=== PATIENT | male | born 1950 | race Caucasian/White ===

== ENCOUNTER 2017-08-02 08:34 | Emergency (ER) | payer OTHER ==
[~2017-08-02] VITALS: Ht 188 cm; Wt 81.7 kg
[~2017-08-02 08:34] MED LIST: Prinivil10 MG PO
[2017-08-02 09:08] LABS: BASOPHILS ABSOLUTE AUTO 0.03 K/mm3 (0.00-0.23); BASOPHILS PERCENT AUTO 1 % (0-2); EOSINOPHILS ABSOLUTE AUTO 0.17 K/mm3 (0.00-0.68); EOSINOPHILS PERCENT AUTO 3 % (0-6); Hematocrit 43.5 % (37.0-53.0); Hemoglobin 15.4 g/dL (13.5-17.5); IMMATURE GRAN ABSOLUTE AUTO 0.02 K/mm3 (0.00-0.10); IMMATURE GRAN PERCENT AUTO 0 % (0-1); LYMPHOCYTES ABSOLUTE AUTO 1.45 K/mm3 (0.84-5.20); LYMPHOCYTES PERCENT AUTO 22 % (21-46); MONOCYTES ABSOLUTE AUTO 0.86 K/mm3 (0.16-1.47); MONOCYTES PERCENT AUTO 13 % (4-13); Mean Corpuscular HGB 33.3 pg (26.0-34.0); Mean Corpuscular HGB Conc 35.4 g/dL (31.5-36.5); Mean Corpuscular Volume 94 fL (80-100); NEUTROPHILS ABSOLUTE AUTO 4.05 K/mm3 (1.96-9.15); NEUTROPHILS PERCENT AUTO 62 % (41-73); Platelet Count 309 K/mm3 (150-400); RDW Coefficient Variation 11.5 % (11.7-14.2); RDW Standard Deviation 39.4 fL (35.1-46.3); Red Blood Cell Count 4.63 M/mm3 (4.30-5.90); White Blood Cell Count 6.58 K/mm3 (4.00-11.30)
[2017-08-02 09:27] LABS: Alanine Aminotransfer (ALT/SGP 24 U/L (12-78); Albumin, Blood 3.9 g/dL (3.4-5.0); Albumin/Globulin Ratio 1.1 (0.8-1.8); Alk Phos 52 U/L (50-136); Anion Gap 8 mmol/L (6-16); Aspartate Aminotrans (AST/SGOT 23 U/L (12-37); Bilirubin, Total 1.2 mg/dL (0.1-1.0); Blood Urea Nitrogen 18 mg/dL (8-24); Bun/Creatinine Ratio 19.1 (12.0-20.0); CO2, Blood 25 mmol/L (21-32); Calcium, Blood 9.2 mg/dL (8.5-10.1); Chloride, Blood 104 mmol/L (98-108); Creatinine, Blood 0.94 mg/dL (0.60-1.20); Globulin, Blood 3.4 g/dL (2.2-4.0); Glomerular Filtration Rate >60 (60-); Glucose, Blood 110 mg/dL (70-99); International Normalized Ratio 0.98; Magnesium, Blood 2.3 mg/dL (1.6-2.4); Potassium, Blood 4.5 mmol/L (3.5-5.5); Prothrombin Time Results 10.2 Sec (9.7-11.5); Sodium, Blood 137 mmol/L (136-145); Total Protein, Blood 7.3 g/dL (6.4-8.2)
[2017-08-02 09:35] LABS: Troponin I <0.015 ng/mL (0.000-0.040)
[2017-11-01] MEDS ORDERED: XARELTO20 MG (15:06)
[2017-11-01] MEDS ORDERED: NEBI5 (15:06)
[2017-11-02] MEDS ORDERED: Prilosec Otc20 MG (10:29)
== END 2017-08-02 12:51 | disposition home or self-care (01) ==
LOC: ER 08:34
PROVIDERS: Emergency Medicine
DX: I48.91 Unspecified atrial fibrillation (principal); F10.20 Alcohol dependence, uncomplicated; Z79.899 Other long term (current) drug therapy; I10 Essential (primary) hypertension; Z87.891 Personal history of nicotine dependence
CPT/HCPCS: 36415; 71045; 80053; 83735; 84443; 84484; 85025; 85610; 93005; 93010; 96365; 96366; 96376; 99284; J7030

== ENCOUNTER 2017-11-02 01:10 | Day surgery (SDC) | END 2017-11-02 12:00 | disposition home or self-care (01) ==

== ENCOUNTER 2018-11-01 07:49 | Day surgery (SDC) | payer OTHER ==
[~2018-11-01] VITALS: Ht 188 cm; Wt 85.1 kg
[~2018-11-01 07:49] MED LIST changes: +NEBI5; +Prilosec Otc20 MG; +XARELTO20 MG
== END 2018-11-01 11:03 | disposition home or self-care (01) ==
LOC: ORSCSDS 07:49
PROVIDERS: Podiatrist Foot & Ankle Surgery
PROC: 0QBN0ZZ Excision of Right Metatarsal, Open Approach (ICD-10-PCS; principal; 2018-11-01 09:00)
PROC: 0QBP0ZZ Excision of Left Metatarsal, Open Approach (ICD-10-PCS; principal; 2018-11-01 09:00)
DX: M21.622 Bunionette of left foot (principal); M21.621 Bunionette of right foot; I10 Essential (primary) hypertension; J44.9 Chronic obstructive pulmonary disease, unspecified; Z87.891 Personal history of nicotine dependence; Z79.899 Other long term (current) drug therapy
CPT/HCPCS: J0690; J1100; J2250; J2405; J2704; J3010; J7120

== ENCOUNTER 2020-06-22 11:54 | Day surgery (SDC) | payer OTHER ==
[~2020-06-22] VITALS: Ht 188 cm; Wt 85.2 kg
[~2020-06-22 11:54] MED LIST changes: +OMEP20ER PO
--- NOTE | 2020-06-22 12:35 | NUR ---
06/22/20 Mario Alberto Rogers CALL LIGHT WITHIN REACH.
== END 2020-06-22 14:09 | disposition home or self-care (01) ==
LOC: ORSCSDS 11:54
PROVIDERS: Surgery
PROC: 0DB98ZX Excision of Duodenum, Via Natural or Artificial Opening Endoscopic, Diagnostic (ICD-10-PCS; principal; 2020-06-22 13:00)
PROC: 0DB68ZX Excision of Stomach, Via Natural or Artificial Opening Endoscopic, Diagnostic (ICD-10-PCS; principal; 2020-06-22 13:00)
PROC: 0DBP8ZX Excision of Rectum, Via Natural or Artificial Opening Endoscopic, Diagnostic (ICD-10-PCS; principal; 2020-06-22 13:00)
DX: R10.13 Epigastric pain (principal); K44.9 Diaphragmatic hernia without obstruction or gangrene; K31.89 Other diseases of stomach and duodenum; D12.8 Benign neoplasm of rectum; K64.8 Other hemorrhoids; Z12.11 Encounter for screening for malignant neoplasm of colon; I48.91 Unspecified atrial fibrillation; J44.9 Chronic obstructive pulmonary disease, unspecified; I10 Essential (primary) hypertension; Z79.01 Long term (current) use of anticoagulants; Z79.899 Other long term (current) drug therapy
CPT/HCPCS: 88305; 88342; J2405; J2704; J7120

== ENCOUNTER 2022-06-29 15:12 | Emergency (ER) | payer OTHER ==
[~2022-06-29] VITALS: Ht 188 cm; Wt 83.9 kg
[2022-06-29 15:36] LABS: BASOPHILS ABSOLUTE AUTO 0.03 K/mm3 (0.00-0.23); BASOPHILS PERCENT AUTO 0 % (0-2); EOSINOPHILS ABSOLUTE AUTO 0.02 K/mm3 (0.00-0.68); EOSINOPHILS PERCENT AUTO 0 % (0-6); Hematocrit 43.3 % (37.0-53.0); Hemoglobin 15.2 g/dL (13.5-17.5); IMMATURE GRAN ABSOLUTE AUTO 0.07 K/mm3 (0.00-0.10); IMMATURE GRAN PERCENT AUTO 1 % (0-1); LYMPHOCYTES ABSOLUTE AUTO 0.59 K/mm3 (0.84-5.20); LYMPHOCYTES PERCENT AUTO 5 % (21-46); MONOCYTES ABSOLUTE AUTO 0.68 K/mm3 (0.16-1.47); MONOCYTES PERCENT AUTO 6 % (4-13); Mean Corpuscular HGB 33.9 pg (26.0-34.0); Mean Corpuscular HGB Conc 35.1 g/dL (31.5-36.5); Mean Corpuscular Volume 96 fL (80-100); Mean Platelet Volume 8.9 fL (9.1-12.4); NEUTROPHILS ABSOLUTE AUTO 10.75 K/mm3 (1.96-9.15); NEUTROPHILS PERCENT AUTO 89 % (41-73); Platelet Count 257 K/mm3 (150-400); RDW Coefficient Variation 11.6 % (11.7-14.2); RDW Standard Deviation 41.3 fL (35.1-46.3); Red Blood Cell Count 4.49 M/mm3 (4.30-5.90); White Blood Cell Count 12.14 K/mm3 (4.00-11.30)
[2022-06-29 16:20] LABS: Alanine Aminotransfer (ALT/SGP 32 U/L (12-78); Albumin, Blood 3.9 g/dL (3.4-5.0); Albumin/Globulin Ratio 1.2 (0.8-1.8); Alk Phos 55 U/L (50-136); Anion Gap 7 mmol/L (6-16); Aspartate Aminotrans (AST/SGOT 27 U/L (12-37); Bilirubin, Total 1.4 mg/dL (0.1-1.0); Blood Urea Nitrogen 15 mg/dL (8-24); Bun/Creatinine Ratio 20.5 (12.0-20.0); CO2, Blood 26 mmol/L (21-32); Calcium, Blood 8.6 mg/dL (8.5-10.1); Chloride, Blood 103 mmol/L (98-108); Creatinine, Blood 0.73 mg/dL (0.60-1.20); Ethanol (Alcohol), Blood, Med <3 mg/dL; Globulin, Blood 3.3 g/dL (2.2-4.0); Glomerular Filtration Rate 97 (60-); Glucose, Blood 124 mg/dL (70-99); Potassium, Blood 4.2 mmol/L (3.5-5.5); Sodium, Blood 136 mmol/L (136-145); Total Protein, Blood 7.2 g/dL (6.4-8.2)
[2022-06-29] MEDS ORDERED: LIDOCAINE1 EAC1 TOP (17:40)
[2022-06-29] MEDS ORDERED: Robaxin750 MG PO (17:40)
[2022-06-29] MEDS ORDERED: OXAYDO5 M1 PO (17:42)
== END 2022-06-29 18:14 | disposition home or self-care (01) ==
LOC: ER 15:12
PROVIDERS: Student in an Organized Health Care Education/Training Program
DX: S06.0X1A Concussion with loss of consciousness of 30 minutes or less, initial encounter (principal); S01.01XA Laceration without foreign body of scalp, initial encounter; S30.0XXA Contusion of lower back and pelvis, initial encounter; S30.1XXA Contusion of abdominal wall, initial encounter; W13.2XXA Fall from, out of or through roof, initial encounter; Z91.048 Other nonmedicinal substance allergy status; Z79.899 Other long term (current) drug therapy; Z87.891 Personal history of nicotine dependence
CPT/HCPCS: 12001; 70450; 71260; 72125; 74177; 80053; 85025; 90471; 90714; 93005; 93010; 96374-59; 99285-25; A9270; G0480; J3010; Q9967

== ENCOUNTER 2024-11-13 09:57 | Observation (INO) | payer OTHER ==
[~2024-11-13] VITALS: Ht 188 cm; Wt 82.9 kg
[2024-11-13] VITALS (8 sets, daily range): BP systolic 99–137; BP diastolic 56–96
[~2024-11-13 09:57] MED LIST changes: +LIDOCAINE1 EAC1 TOP; +OXAYDO5 M1 PO; +Robaxin750 MG PO; -XARELTO20 MG; +XARELTO20 MG PO
[2024-11-13] MEDS ORDERED: NEBI5 PO (10:30)
[2024-11-13 11:03] LABS: BASOPHILS ABSOLUTE AUTO 0.03 K/mm3 (0.00-0.23); BASOPHILS PERCENT AUTO 0 % (0-2); EOSINOPHILS ABSOLUTE AUTO 0.18 K/mm3 (0.00-0.68); EOSINOPHILS PERCENT AUTO 3 % (0-6); Hematocrit 39.9 % (37.0-53.0); Hemoglobin 13.7 g/dL (13.5-17.5); IMMATURE GRAN ABSOLUTE AUTO 0.03 K/mm3 (0.00-0.10); IMMATURE GRAN PERCENT AUTO 0 % (0-1); LYMPHOCYTES PERCENT AUTO 16 % (21-46); MONOCYTES ABSOLUTE AUTO 0.82 K/mm3 (0.16-1.47); MONOCYTES PERCENT AUTO 12 % (4-13); Mean Corpuscular HGB Conc 34.3 g/dL (31.5-36.5); Mean Corpuscular Volume 99 fL (80-100); Mean Platelet Volume 9.4 fL (9.1-12.4); NEUTROPHILS ABSOLUTE AUTO 4.59 K/mm3 (1.96-9.15); NEUTROPHILS PERCENT AUTO 68 % (41-73); Platelet Count 264 K/mm3 (150-400); RDW Coefficient Variation 12.4 % (11.7-14.2); RDW Standard Deviation 44.4 fL (35.1-46.3); Red Blood Cell Count 4.03 M/mm3 (4.30-5.90); White Blood Cell Count 6.75 K/mm3 (4.00-11.30)
[2024-11-13 11:27] LABS: Albumin, Blood 3.5 g/dL (3.4-5.0); Albumin/Globulin Ratio 1.1 (0.8-1.8); Bilirubin, Total 1.1 mg/dL (0.1-1.0); Bun/Creatinine Ratio 13.2 (12.0-20.0); Calcium, Blood 8.9 mg/dL (8.5-10.1); Creatinine, Blood 0.91 mg/dL (0.60-1.20); Globulin, Blood 3.2 g/dL (2.2-4.0); Magnesium, Blood 2.3 mg/dL (1.6-2.4); Potassium, Blood 4.4 mmol/L (3.5-5.5); Total Protein, Blood 6.7 g/dL (6.4-8.2)
[2024-11-13] MEDS ORDERED: Metoprolol Tartrate 1 MG/ML 5 ML VIAL IV PRN (11:50)
[2024-11-13] MEDS ORDERED: Diltiazem HCl 5 MG / ML 5ML Vial IV ONE (13:40)
[2024-11-13] MEDS ORDERED: dilTIAZem HCL 125 MG in Dextrose 5% 100 ML IV SCH (13:40)
[2024-11-13] MEDS ORDERED: Magnesium Hydroxide Conc 10 ML UDC PO PRN (16:15)
[2024-11-13] MEDS ORDERED: Calcium Carbonate 500 MG Tab Chew PO PRN (16:15)
[2024-11-13] MEDS ORDERED: Ondansetron HCl 2 MG / ML 2ML Vial IV PRN (16:15)
[2024-11-13] MEDS ORDERED: dilTIAZem HCL 240 MG CAP.CD PO SCH (18:00)
--- NOTE | 2024-11-13 19:28 | NUR ---
ASSUMPTION OF CARE ASSUMED PTS CARE AT 1900,PT RESTING IN BED,WIDE AWAKE AND ALERT.BEDSIDE REPORT COMPLETED,PLAN OF CARE REVIEWED.CARDIZEM DRIP INFUSING AT 5MG/HR,HR 98-121,SBP IN THE 100'S.PT DENIES CHEST PAIN,DENIES GENERALIZED,DENIES SOB,DENIES NEEDS.CALL LIGHT AND PT'S ITEMS WITHIN REACH.MONITORING ONGOING PER CARE PLAN.
[2024-11-13] MEDS ORDERED: Docusate Sodium 100 MG Cap PO SCH (21:00)
[2024-11-13] MEDS ORDERED: Sennosides 8.6 MG Tab PO SCH (21:00)
[2024-11-14] VITALS (26 sets, daily range): BP systolic 93–146; BP diastolic 49–104
[2024-11-14] MEDS ORDERED: Melatonin 5 MG Tablet PO ONE (00:17)
[2024-11-14 04:38] LABS: BASOPHILS ABSOLUTE AUTO 0.04 K/mm3 (0.00-0.23); BASOPHILS PERCENT AUTO 1 % (0-2); EOSINOPHILS ABSOLUTE AUTO 0.28 K/mm3 (0.00-0.68); EOSINOPHILS PERCENT AUTO 4 % (0-6); Hematocrit 36.2 % (37.0-53.0); Hemoglobin 12.5 g/dL (13.5-17.5); IMMATURE GRAN ABSOLUTE AUTO 0.01 K/mm3 (0.00-0.10); IMMATURE GRAN PERCENT AUTO 0 % (0-1); LYMPHOCYTES ABSOLUTE AUTO 1.23 K/mm3 (0.84-5.20); LYMPHOCYTES PERCENT AUTO 18 % (21-46); MONOCYTES ABSOLUTE AUTO 0.68 K/mm3 (0.16-1.47); MONOCYTES PERCENT AUTO 10 % (4-13); Mean Corpuscular HGB 34.4 pg (26.0-34.0); Mean Corpuscular HGB Conc 34.5 g/dL (31.5-36.5); Mean Corpuscular Volume 100 fL (80-100); Mean Platelet Volume 9.3 fL (9.1-12.4); NEUTROPHILS ABSOLUTE AUTO 4.68 K/mm3 (1.96-9.15); NEUTROPHILS PERCENT AUTO 68 % (41-73); Platelet Count 234 K/mm3 (150-400); RDW Coefficient Variation 12.4 % (11.7-14.2); Red Blood Cell Count 3.63 M/mm3 (4.30-5.90); White Blood Cell Count 6.92 K/mm3 (4.00-11.30)
[2024-11-14 05:02] LABS: Bun/Creatinine Ratio 13.7 (12.0-20.0); Calcium, Blood 8.3 mg/dL (8.5-10.1); Creatinine, Blood 0.88 mg/dL (0.60-1.20); Magnesium, Blood 2.2 mg/dL (1.6-2.4); Potassium, Blood 4.1 mmol/L (3.5-5.5)
--- NOTE | 2024-11-14 06:11 | NUR ---
PT MONITORED DURING THE SHIFT.PTS HR DROPPED DOWN TO 35 FOR 3 BEATS AT 2300,CARDIZEM DRIP STOPPED.BP STABLE.AT MIDNIGHT PT HAD A 3.09SEC PAUSE,PT ASYMPTOMATIC. NOTIFIED.NO NEW ORDERS GIVEN. STATES TO MONITOR PT.HE REMAINS IN AFIB,IRREGULAR VENTRICULAR RATE.RATE 35-80S.PT DID NOT SUSTAIN IN THE 30S.PT HAD OTHER PAUSES BUT THEY WERE LESS THAT 3SECS LONG.THIS MORNING HR IMPROVED,HR 70'S AND 80'S,BP REMAINS STABLE.PT DENIES CHEST PAIN,DENIES GENERALIZED PAIN.PT REPORTS THAT HE WAS ABLE TO GET SOME SLEEP AFTER TAKING MELATONIN.PT DENIES NEEDS AT THIS TIME.CALL LIGHT AND PTS ITEMS WITHIN REACH.MONITORING ONGOING PER CAREPLAN.
[2024-11-14] MEDS ORDERED: Rivaroxaban 10 MG Tab PO SCH (09:00)
[2024-11-14 11:10] LABS: Hematocrit 38.8 % (37.0-53.0); Hemoglobin 13.1 g/dL (13.5-17.5)
[2024-11-14] MEDS ORDERED: Aminophylline 250MG / 10ML 10 ML Vial ONE (13:20)
[2024-11-14] MEDS ORDERED: Regadenoson 0.4 MG/5 ML SYRINGE ONE (13:20)
[2024-11-14] MEDS ORDERED: Diltiazem HCl 5 MG / ML 5ML Vial IV PRN (14:30)
--- NOTE | 2024-11-14 14:38 | NUR ---
DR PAYTON NOTIFIED OF HR 100-120'S SBP 127
--- NOTE | 2024-11-14 17:12 | NUR ---
Pt. is sitting up onthe side of his bed when he welcomes my visit. Pt. is pleasant. Facilitated a life review and Pt. verbalizes some impatience regarding waiting for results regarding his monitoring coordinator. Seek to normalize the Pt. experience and listen with empathy and a calming presence. The Pt. responded with acknowledgement and agreement and veerbalized gratitude for the spiritual care visit.
--- NOTE | 2024-11-14 19:19 | NUR ---
ASSUMPTION OF CARE ASSUMED PTS CARE AT 1900,PT SITTING UP AT THE EDGE OF THE BED WORKING ON A WORD PUZZLE.REVIEWED PLAN OF CARE.PT REQUESTING FOR A SLEEPING MED.HR IN THE 120'S,SBP 100'S.PT DENIES CHEST PAIN/PRESSURE,DENIES GENERALIZED PAIN,DENIES FURTHER NEEDS.CALL LIGHT AND PTS ITENS WITHIN REACH.MONITORING ONGOING PER CAREPLAN.
[2024-11-14] MEDS ORDERED: Melatonin 5 MG Tablet PO PRN (19:45)
[2024-11-14] MEDS ORDERED: DRONEDARONE HCL 400 MG PO SCH (21:00)
[2024-11-15] VITALS (8 sets, daily range): BP systolic 105–147; BP diastolic 67–100
[2024-11-15 05:03] LABS: BASOPHILS ABSOLUTE AUTO 0.02 K/mm3 (0.00-0.23); BASOPHILS PERCENT AUTO 0 % (0-2); EOSINOPHILS ABSOLUTE AUTO 0.27 K/mm3 (0.00-0.68); EOSINOPHILS PERCENT AUTO 4 % (0-6); Hemoglobin 13.1 g/dL (13.5-17.5); IMMATURE GRAN ABSOLUTE AUTO 0.03 K/mm3 (0.00-0.10); IMMATURE GRAN PERCENT AUTO 1 % (0-1); LYMPHOCYTES PERCENT AUTO 18 % (21-46); MONOCYTES ABSOLUTE AUTO 0.64 K/mm3 (0.16-1.47); MONOCYTES PERCENT AUTO 10 % (4-13); Mean Corpuscular HGB Conc 34.5 g/dL (31.5-36.5); Mean Corpuscular Volume 99 fL (80-100); Mean Platelet Volume 9.5 fL (9.1-12.4); NEUTROPHILS PERCENT AUTO 67 % (41-73); Platelet Count 244 K/mm3 (150-400); RDW Coefficient Variation 12.4 % (11.7-14.2); RDW Standard Deviation 45.1 fL (35.1-46.3); Red Blood Cell Count 3.85 M/mm3 (4.30-5.90); White Blood Cell Count 6.56 K/mm3 (4.00-11.30)
[2024-11-15 05:45] LABS: Albumin, Blood 3.4 g/dL (3.4-5.0); Albumin/Globulin Ratio 1.1 (0.8-1.8); Bilirubin, Total 1.6 mg/dL (0.1-1.0); Bun/Creatinine Ratio 15.4 (12.0-20.0); Calcium, Blood 8.4 mg/dL (8.5-10.1); Creatinine, Blood 0.91 mg/dL (0.60-1.20); Globulin, Blood 3.2 g/dL (2.2-4.0); Potassium, Blood 4.1 mmol/L (3.5-5.5); Total Protein, Blood 6.6 g/dL (6.4-8.2)
--- NOTE | 2024-11-15 07:22 | NUR ---
PT MONITORED DURING THE SHIFT.PT REPORTS GETTING BETTER SLEEP.PT'S HR 100'S-120'S,130 WITH ACTIVITY BUT DID NOT SUSTAIN AT 130.BP STABLE.PT DENIES PAIN,DENIES NEEDS THIS MORNING.CALL LIGHT AND PT'S ITEMS WITHIN REACH.MONITORING ONGOING PER CAREPLAN.
[2024-11-15] MEDS ORDERED: Diltiazem HCl 180 MG Cap.CD PO SCH ×2 (08:00→09:00)
[2024-11-15] MEDS ORDERED: dilTIAZem HCL 60 MG CAP.SR PO ONE (10:00)
[2024-11-15] MEDS ORDERED: dilTIAZem HCL 240 MG CAP.CD PO ONE (15:30)
[2024-11-15] MEDS ORDERED: DILT120ERA PO (15:38)
--- NOTE | 2024-11-15 15:57 | NUR ---
DISCHARGE NOTE PT HR TRENDED DOWN AND MAINTAINED IN 90S TO LOW 100S AFTER MORNING DOSE OF [address] STONER AND DE. BASSETT NOTIFIED. PHARMACY LIKELY TO BE CLOSED BEFORE PT CAN ARRIVE FOR MEDICATIONS. PT DISCHARGED WITH 240 MG CARDIZEM X1 CAPSULE PO WITH INSTRUCTIONS PROVIDED TO TAKE IN THE MORNING AFTER CHECKING BP AND HR. PRESCRIPTION WRITTEN FOR BP CUFF AND PULSE OXIMETRY WITH HR READING. DISCHARGE INSTRUCTIONS COVERED WITH PATIENT. PT EDUCATED ON S/S OF EMERGENCIES INCLUDING STROKE. PT EDUCATED ON NEW MEDICATIONS, DISCONTINUED MEDICATIONS. PT INSTRUCTED TO F/U WITH PRIMARY CARE WITHIN 1 WEEK AND TO F/U WITH A SPRAYER AUTOMATIC SPRAY MACHINE. NO FURTHER QUESTIONS AT TIME OF DISCHARGE. PIV DISCONTINUED. PT ESCORTED AMBULATORY TO POV WITH ALL PERSONAL BELONGINGS.
[2024-11-16] MEDS ORDERED: dilTIAZem HCL 240 MG CAP.CD PO SCH (09:00)
== END 2024-11-15 16:34 | disposition home or self-care (01) ==
LOC: ER 09:57 → ERHOLD 09:58 → PCU 17:02
PROVIDERS: Student in an Organized Health Care Education/Training Program; ADMIT Internal Medicine
DX: I48.91 Unspecified atrial fibrillation (principal); R07.9 Chest pain, unspecified; I10 Essential (primary) hypertension; J44.9 Chronic obstructive pulmonary disease, unspecified; K59.04 Chronic idiopathic constipation; Z87.891 Personal history of nicotine dependence; Z79.01 Long term (current) use of anticoagulants; Z79.899 Other long term (current) drug therapy; Z91.048 Other nonmedicinal substance allergy status
CPT/HCPCS: 36415; 71046; 78452; 80048; 80053; 83735; 83880; 84443; 84484; 85014; 85018; 85025; 93005; 93010; 93017; 93306; 96365; 96366; 96375; 96376; 99285-25; A9270; A9500; G0378; J0280; J2785

== ENCOUNTER 2025-02-19 06:24 | Day surgery (SDC) | payer OTHER ==
[2025-02-19] VITALS (7 sets, daily range): BP systolic 132–158; BP diastolic 85–104
[~2025-02-19] VITALS: Ht 188 cm; Wt 82.6 kg
[~2025-02-19 06:24] MED LIST changes: +DILT120ERA PO; +NEBI5 PO; +Tambocor100 MG PO
[2025-02-19] MEDS ORDERED: NS 1,000 ML IV ONE (06:40)
--- NOTE | 2025-02-19 07:13 | NUR ---
ASSUMED CARE FROM ANESTHESIA. PT AWAKE AND VERBALIZING WELL POST CARDIOVERSION. SR 65-70 BPM POST CARDIOVERSION.
--- NOTE | 2025-02-19 07:55 | NUR ---
PT AND VERBALIZED UNDERSTANDING OF WRITTEN AND VERBAL D/C INST. IV REMOVED. SR 65 BPM ON D/C. PT TAKEN OUT OF THE HRT CENTER VIA W/C.
[2025-02-19] MEDS ORDERED: Propofol 10mg/ml 20 ml Vial (Procedural) IV ONE (10:24)
== END 2025-02-19 08:09 | disposition home or self-care (01) ==
LOC: MHTC 06:24 → ORSCSDS 07:00 → ORD 07:00 → MHTC 08:09
DX: I48.91 Unspecified atrial fibrillation (principal); J44.9 Chronic obstructive pulmonary disease, unspecified; I10 Essential (primary) hypertension; I08.1 Rheumatic disorders of both mitral and tricuspid valves; Z87.891 Personal history of nicotine dependence; Z79.01 Long term (current) use of anticoagulants; Z79.899 Other long term (current) drug therapy
CPT/HCPCS: 92960; 93005; 93010; 93246; J2704; J7030